=== PATIENT | female | born 1975 | race Two or more races ===

== ENCOUNTER 2016-12-05 20:24 | Emergency (ER) | payer BC ==
[~2016-12-05] VITALS: Ht 170.2 cm; Wt 69.5 kg
[2016-12-05] MEDS ORDERED: NORCO 5/3251 TABLET PO (22:05)
[2016-12-05 22:39] VITALS: BP 130/73
== END 2016-12-05 22:40 | disposition home or self-care (01) ==
LOC: EME 20:24 → RME 20:24
PROC: 2W3KX1Z Immobilization of Left Finger using Splint (ICD-10-PCS; principal; 2016-12-05)
DX: S62.605A Fracture of unspecified phalanx of left ring finger, initial encounter for closed fracture (principal); W21.06XA Struck by volleyball, initial encounter; Y93.68 Activity, volleyball (beach) (court)
CPT/HCPCS: 73130; 99281; 99284